=== PATIENT | female | born 1950 | race Two or more races ===

== ENCOUNTER 2024-10-13 11:18 | Inpatient (IN) | payer MEDICARE, MEDICAID ==
[~2024-10-13] VITALS: Ht 149.9 cm; Wt 93.0 kg
--- NOTE | 2024-10-13 12:53 | DVH ---
INDICATION: BACK PAIN TO RIGHT LOWER LEG TECHNIQUE: 4 views of the lumbar spine were obtained. COMPARISON: None FINDINGS: There are no acute fractures or subluxations. Osteopenia. Multilevel degenerative changes of the spine. Grade 2 anterolisthesis of L4 on L5. Grade 1 anterolisthesis of L5 on S1. IMPRESSION: No acute fracture or subluxation.
[2024-10-13] MEDS: HYDROcodone-ACET 5/325MG TAB PO ONE ×2 (13:07→17:52)
--- NOTE | 2024-10-13 13:14 | ED.PDOC ---
Musculoskeletal HPI Comments A 74 YEAR OLD FEMALE PRESENTS TO THE ED WITH COMPLAINT OF RIGHT LOWER LEG PAIN. PATIENT STATES SHE HAS BEEN EXPERIENCING RIGHT LOWER LEG PAIN THAT RADIATES UP HER RIGHT LEG TO HER RIGHT BUTTOCK FOR THE PAST 5 DAYS. PATIENT IS REQUESTING AN ULTRASOUND TO RULE OUT A BLOOD CLOT IN HER RIGHT LOWER EXTREMITY. WALKING AND STANDING INCREASES RIGHT LOWER LEG PAIN. PATIENT DENIES FEVER, CHILLS, SHORTNESS OF BREATH, CHEST PAIN, ABDOMINAL PAIN, NAUSEA, VOMITING, HEADACHE, OR OTHER COMPLAINTS. NO OTHER SYMPTOMS OR MODIFYING FACTORS AT THIS TIME. PATIENT IS ALERT, ORIENTED X 4, AND HAS STEADY GAIT. Chief Complaint: Lower Extremity Time Seen by MD: 11:53 Primary Care Provider: NONE Reviewed Notes: Nurses Notes, Medications, Allergies Allergies: Coded Allergies: Acetaminophen (Verified Allergy, Intermediate, 07/16/11) Codeine (Verified Allergy, Intermediate, 07/16/11) Penicillins (Verified Allergy, 07/16/11) Information Source: Patient Mode of Arrival: Ambulatory Location: Right Extremity Location: Leg Timing: Days Prehospital treatment: None Severity: Moderate Able to Move Extremity: Yes Bear Weight: Fully Pain: Moderate Mechanism: No Trauma, Spontaneous Circumstances: Spontaneous Onset of Symptoms: Spontaneous Symptoms: Pain DVT Risk Factors: NONE Last Tetanus: Unknown Associated signs and symptoms: Leg pain Past Medical History PAST MEDICAL HISTORY: Arthritis, HTN Surgical History: Denies all surgeries PHARMACY ORDER ENTRY TECHNICIAN History: No Pertinent PHARMACY ORDER ENTRY TECHNICIAN History Family History Family History: Reviewed,noncontributory to illness Social History Smoker: Non-Smoker Alcohol: Denies ETOH Use Drugs: Denies Drug Use Lives In: Home Constitutional: reports: others (ANXIOUS ); denies: chills, diaphoresis, fatigue, fever, malaise, sweats, weakness EENTM: denies: blurred vision, double vision, ear bleeding, ear discharge, ear drainage, ear pain, ear ringing, eye pain, eye redness, hearing loss, mouth pain, mouth swelling, nasal discharge, nose bleeding, nose congestion, nose pain, photophobia, tearing, throat pain, throat swelling, voice changes, others Respiratory: denies: cough, hemoptysis, orthopnea, SOB at rest, shortness of breath, SOB with excertion, stridor, wheezing, others Cardiovascular: denies: chest pain, dizzy spells, diaphoresis, Dyspnea on exertion, edema, irregular heart beat, left arm pain, lightheadedness, palpitations, PND, syncope, others Gastrointestinal: denies: abdomen distended, abdominal pain, blood streaked bowels, constipated, diarrhea, dysphagia, difficulty swallowing, hematemesis, melena, nausea, poor appetite, poor fluid intake, rectal bleeding, rectal pain, vomiting, others Genitourinary: denies: abnormal vagina bleeding, burning, dyspareunia, dysuria, flank pain, frequency, hematuria, incontinence, pain, , vagina discharge, urgency, others Neurological: denies: dizziness, fainting, headache, left sided numbness, left sided weakness, numbness, paresthesia, pre-existing deficit, right sided numbness, right sided weakness, seizure, speech problems, tingling, tremors, weakness, others Musculoskeletal: reports: muscle pain, others (RIGHT LOWER LEG PAIN THAT RADIATES TO RIGHT BUTTOCK); denies: back pain, gout, joint pain, joint swelling, muscle stiffness, neck pain Integumetry: denies: bruises, change in color, change in hair/nails, dryness, laceration, lesions, lumps, rash, wounds, others Allergic/Immunocompromised: denies: Difficulty Healing, Frequent Infections, Hives, Itching, others Hematologic/Lymphatic: denies: anemia, blood clots, easy bleeding, easy bruising, swollen glands, others Endocrine: denies: excessive hunger, excessive sweating, excessive thirst, excessive urination, flushing, intolerance to cold, intolerance to heat, unexplained weight gain, unexplained weight loss, others Psychiatric: denies: anxiety, bipolar disorder, depression, hopeless, panic disorder, schizophrenia, sleepless, suicidal, others All Other Systems: Reviewed and Negative Physical Exam General Appearance: Mild Distress, Normal, Other (ANXIOUS ) HEENT: Normal ENT Inspection, PERRL/EOMI, Pharynx Normal, TMs Normal Neck: Full Range of Motion, Non-Tender, Normal, Normal Inspection Respiratory: Chest Non-Tender, Lungs Clear, No Accessory Muscle Use, No Respiratory Distress, Normal Breath Sounds Cardiovascular: No Edema, No JVD, No Murmur, No Gallop, Normal Peripheral Pulses, Regular Rate/Rhythm Breast Exam: Deferred Gastrointestinal: No Organomegaly, Non Tender, No Pulsatile Mass, Normal Bowel Sounds, Soft Genitalia: Deferred Pelvic: Deferred Rectal: Deferred Extremities: Decreased range of motion (SLIGHTLY. ), No calf tenderness, Normal capillary refill, No pedal edema, Tender (WITH MILD SWELLING ON RIGHT LOWER LEG, NO ERYTHEMA AND SKIN RASH, MULTIPLE SMALL VARICOSE VEINS ON BILATERAL LOWER EXTREMITIES NOTED.) Musculoskeletal : Apperance: Normal Neurologic: Alert, technology development intern II-XII nml as Tested, No Motor Deficits, Normal Affect, Normal Mood, No Sensory Deficits Cerebellar Function: Normal Reflexes: Normal Skin: Dry, Normal Color, Warm Peripheral Pulses: 2+ carotid (R), 2+ carotid (L), 2+ dorsalis pedis (R), 2+ dorsalis pedis (L) Lymphatic: No Adenopathy Was a procedure done? Was a procedure done?: No Differential Diagnosis EXT Differential Diagnosis: Cellulitis, Deep Vein Thrombosis, Sprain, DJD, Strain, Arthritis X-Ray, Labs, Meds, VS Vital Signs Date Time Temp Pulse Resp B/P (MAP) Pulse Ox O2 Delivery O2 Flow Rate FiO2 10/13/24 12:27 97.5 75 18 139/80 (99) 97 97.5 10/13/24 11:52 97.5 75 18 139/80 (99) 97 Lab Test 10/13/24 13:30 Range/Units White Blood Count 4.3 L 4.4-10.8 10^3/uL Red Blood Count 4.70 4.0-5.20 10^6/uL Hemoglobin 13.4 12.2-16.2 g/dL Hematocrit 39.9 36.0-46.0 % Mean Corpuscular Volume 85.0 80.0-100.0 fL Mean Corpuscular Hemoglobin 28.6 28.0-32.0 pg Mean Corpuscular Hemoglobin Concent 33.6 32.0-36.0 g/dL Red Cell Distribution Width 14.5 H 11.8-14.3 % Platelet Count 215 140-450 10^3/uL Mean Platelet Volume 8.1 6.9-10.8 fL Neutrophils (%) (Auto) 52.1 37.0-80.0 % Lymphocytes (%) (Auto) 31.6 10.0-50.0 % Monocytes (%) (Auto) 15.3 H 0.0-12.0 % Eosinophils (%) (Auto) 0.6 0.0-7.0 % Basophils (%) (Auto) 0.4 0.0-2.0 % Neutrophils # (Auto) 2.2 1.6-8.6 10 ^3/uL Lymphocytes # (Auto) 1.3 0.4-5.4 10 ^3/uL Monocytes # (Auto) 0.7 0-1.3 10 ^3/uL Eosinophils # (Auto) 0 0-0.8 10 ^3/uL Basophils # (Auto) 0 0-0.2 10 ^3/uL Nucleated Red Blood Cells 0.1 % Prothrombin Time 10.6 9.3-11.8 sec Prothrombin Time INR 1.00 0.9-1.15 Sodium Level 137 136-145 mmol/L Potassium Level 3.6 3.5-5.1 mmol/L Chloride Level 102 98-107 mmol/L Carbon Dioxide Level 26 20-31 mmol/L Anion Gap 9 5-15 Blood Urea Nitrogen 14 9-23 mg/dL Creatinine 0.73 0.550-1.02 mg/dL Glomerular Filtration Rate Calc 86 >90 mL/min BUN/Creatinine Ratio 19.2 10.0-20.0 Serum Glucose 113 H 74-106 mg/dL Calcium Level 9.2 8.7-10.4 mg/dL Current Medications Medications (Trade) Dose Ordered Sig/Nimesh Route Start Time Stop Time Status Last Admin Acetaminophen/ Hydrocodone Bitart ([place] 5/325MG Tab) 1 tab ONCE ONCE PO 10/13/24 13:15 10/13/24 13:16 DC 10/13/24 13:07 Enoxaparin Sodium (Lovenox) 90 mg ONCE ONCE SC 10/13/24 13:30 10/13/24 13:31 DC 10/13/24 13:48 Sodium Chloride 1,000 ml @ 125 mls/hr Q8H ONCE IV 10/13/24 13:30 10/13/24 21:29 10/13/24 13:47 US RT LOWER DVT US 10/13/2024 01:07 PM Clinical History: RIGHT LOWER LEG PAIN Comparison: None Technique: Duplex Doppler evaluation of the deep venous system of the right lower extremity from the common femoral vein to the popliteal vein including color Doppler and spectral/pulsed waveform analysis was performed. Findings: The common femoral vein demonstrates appropriate compressibility and waveform variability. There is compressibility/patency of the great saphenous vein at the proximal thigh. The proximal and mid segments of the femoral vein are not compressible. No flow is seen in the proximal segment. Partial flow noted in mid segment. The deep femoral vein demonstrates appropriate compressibility and waveform variability. The popliteal vein demonstrates appropriate compressibility and waveform variability. There is color flow in the tibioperoneal trunk and posterior tibial vein. Impression: 1. Deep venous thrombosis involving the proximal and mid segments of the femoral vein, occlusive in the proximal part of the vein. ATED BY: COURTNEY FREGOSO MD DICTATED DATE/TIME: 10/13/24 134 SIGNED BY: COURTNEY FREGOSO MD SIGNED DATE/TIME: 10/13/24 134 CC: INDICATION: BACK PAIN TO RIGHT LOWER LEG TECHNIQUE: 4 views of the lumbar spine were obtained. COMPARISON: None FINDINGS: There are no acute fractures or subluxations. Osteopenia. Multilevel degenerative changes of the spine. Grade 2 anterolisthesis of L4 on L5. Grade 1 anterolisthesis of L5 on S1. IMPRESSION: No acute fracture or subluxation. ATED BY: GORDON HOWARD MD DICTATED DATE/TIME: 10/13/24 124 SIGNED BY: GORDON HOWARD MD SIGNED DATE/TIME: 10/13/24 124 CC: X-Ray, Labs, Meds, VS Comment EXTERNAL MEDICAL RECORDS REVIEWED: [NONE] INDEPENDENT HISTORIANS: [NONE] SOCIAL DETERMINANTS OF HEALTH: [NONE] LABS ORDERED: NONE REVIEWED AND INTERPRETED RESULTS: NONE IMAGING ORDERED: CV VENOUS DOPPLER LOW EXT RT, XR L-SPINE TREATMENTS ORDERED: NORCO 5/325 MG P.O, LOVENOX 90 MG SC, 0.9 NS 125ML/HOUR PROCEDURES PERFORMED: NONE CRITICAL CARE TIME: NONE I HAVE DISCUSSED THE PATIENT WITH THE ATTENDING PHYSICIAN DR. MILLER AND HE AGREES WITH THE PATIENT'S PLAN OF CARE AND ADMISSION. UPON MY PHYSICAL EXAMINATION, THE PATIENT HAD VARICOSE VEINS NOTED TO HER BILATERAL LOWER EXTREMITIES, BUT THE PATIENT HAD MINIMAL SWELLING NOTED TO HER RIGHT LOWER EXTREMITY, NO REDNESS OR OPEN WOUNDS WERE NOTED. MY DIFFERENTIAL DIAGNOSIS INCLUDES, DVT, SUPERFICIAL THROMBOSIS, MUSCLE STRAIN, DDD OF L-SPINE, LUMBAR RADICULOPATHY, VARICOSE VEINS. AN ULTRASOUND OF THE PATIENT'S RIGHT LOWER EXTREMITY WAS DONE WHICH REVEALED A DVT, BUT NO OTHER FINDINGS. AN X-RAY OF THE PATIENT'S LUMBAR SPINE WAS DONE WHICH REVEALED DEGENERATIVE DISC DISEASE, BUT NO OTHER ACUTE FINDINGS. PATIENT WAS MEDICATED HERE IN THE ED WITH NORCO 5/325 MG P.O., AND LOVENOX 90 MG SUBCUTANEOUSLY. DUE TO THE PATIENT HAVING A DVT IN HER RIGHT LOWER EXTREMITY, I HAVE DETERMINED THE PATIENT NEEDS TO BE ADMITTED FOR FURTHER TREATMENT AND EVALUATION. ON-CALL ADMITTING PHYSICIAN WILL BE CONTACTED FOR ADMISSION OF THIS PATIENT. Images Reviewed?: Images reviewed and evaluated by me Time of 1ST Reevaluation: 14:00 Reevaluation 1ST: Unchanged Patient Education/Counseling: Diagnosis, Treatment Family Education/Counseling: Diagnosis, Treatment Departure 1 Departure Time of Disposition: 14:00 Impression: Primary Impression: Deep vein thrombosis (DVT) of right lower extremity Qualified Codes: I82.411 - Acute embolism and thrombosis of right femoral vein Additional Impression: Degenerative disc disease, lumbar Qualified Codes: M51.361 - Other intervertebral disc degeneration, lumbar region with lower extremity pain only Disposition: 09 ADMITTED INPATIENT Admit to: Tele Condition: Serious Critical Care Note Critical Care Time?: No Stability Stability form required: Yes Unstable for transfer: Requires medication, ED Physician Assesment, Possible rapid decline Heart Score Heart Score: Heart Score Response (Comments) Value History N/A 0 EKG N/A 0 Age N/A 0 Risk Factors N/A 0 Troponin N/A 0 Total 0 I personally scribed for LISSETTE GREENE ([email or web address]) on 10/13/24 at 13:14. Electronically submitted by Samuel Carbajal ([employer] I personally scribed for LISSETTE GREENE ([email or web address]) on 10/13/24 at 13:50. Electronically submitted by Samuel Carbajal ([email or web address]). LISSETTE GREENE Oct 13, 2024 13:14
--- NOTE | 2024-10-13 13:43 | DVH ---
US RT LOWER DVT US 10/13/2024 01:07 PM Clinical History: RIGHT LOWER LEG PAIN Comparison: None Technique: Duplex Doppler evaluation of the deep venous system of the right lower extremity from the common femo ral vein to the popliteal vein including color Doppler and spectral/pulsed waveform analysis was perf ormed. Findings: The common femoral vein demonstrates appropriate compressibility and waveform variability. There is compressibility/patency of the great saphenous vein at the proximal thigh. The proximal and mid segments of the femoral vein are not compressible. No flow is seen in the proxim al segment. Partial flow noted in mid segment. The deep femoral vein demonstrates appropriate compressibility and waveform variability. The popliteal vein demonstrates appropriate compressibility and waveform variability. There is color flow in the tibioperoneal trunk and posterior tibial vein. Impression: 1. Deep venous thrombosis involving the proximal and mid segments of the femoral vein, occlusive in t he proximal part of the vein.
[2024-10-13] MEDS: SODIUM CHLORIDE 0.9% 1,000 ML IV ONE (13:47)
[2024-10-13] MEDS: ENOXAPARIN SOD 100 MG/1 ML SYRINGE SC ONE (13:48)
[2024-10-13 13:59] LABS: Basophils # (auto) 0 10 ^3/uL (0-0.2); Basophils % (auto) 0.4 % (0.0-2.0); Eosinophils # (auto) 0 10 ^3/uL (0-0.8); Eosinophils % (auto) 0.6 % (0.0-7.0); Hematocrit 39.9 % (36.0-46.0); Hemoglobin 13.4 g/dL (12.2-16.2); Lymphocytes # (auto) 1.3 10 ^3/uL (0.4-5.4); Lymphocytes % (auto) 31.6 % (10.0-50.0); Mean Corpuscular Hemoglobin 28.6 pg (28.0-32.0); Mean Corpuscular Hgb Conc. 33.6 g/dL (32.0-36.0); Monocytes # (auto) 0.7 10 ^3/uL (0-1.3); Monocytes % (auto) 15.3 % (0.0-12.0); Neutrophils # (auto) 2.2 10 ^3/uL (1.6-8.6); Neutrophils % (auto) 52.1 % (37.0-80.0); Nucleated Red Blood Cells % 0.1 %; Platelet Count (auto) 215 10^3/uL (140-450); Red Cell Distribution Width 14.5 % (11.8-14.3); White Blood Cell 4.3 10^3/uL (4.4-10.8)
[2024-10-13 14:03] LABS: Anion Gap 9 (5-15); Carbon Dioxide 26 mmol/L (20-31); Chloride 102 mmol/L (98-107); Potassium 3.6 mmol/L (3.5-5.1); Sodium 137 mmol/L (136-145)
[2024-10-13 14:05] LABS: Calcium 9.2 mg/dL (8.7-10.4)
[2024-10-13 14:10] LABS: BUN/Creatinine Ratio 19.2 (10.0-20.0); Blood Urea Nitrogen 14 mg/dL (9-23)
[2024-10-13 14:17] LABS: Glucose 113 mg/dL (74-106)
[2024-10-13 14:30] LABS: Prothrombin Time 10.6 sec (9.3-11.8)
[2024-10-13] MEDS: IOHEXOL 350 MG/ML 100ML IJ ONE (22:53)
--- NOTE | 2024-10-13 23:00 | DVHHPRES ---
History of Present Illness Resident Creating Document: DANUTA MUÑOZ RESIDENT Reason for Visit: Right lower leg pain History of Present Illness This is a 74-year-old female who comes to the ED with chief complain of right lower leg pain. She has a past medical history relevant for hypertension, arthritis. Denies any smoking, alcohol or drug abuse. Patient stated that for the last three weeks he has been experiencing worsening right lower leg pain, denies any recent trauma, she stated that it mainly on her side, does state having mild swollen on that side as well, denies any rash, redness, she stated that she has sinus pain on walking. Denies any chest pain, shortness of breath, fevers, chills, abdominal pain, nausea, vomiting, dizziness, lightheadedness. She only states having a mild productive cough and states having recent sick contacts at home. Patient also relates having had at least three surgical procedures on on both of her legs for her varicose veins, by a vascular surgeon, last procedure was around six months ago. In the ED patient had a lower extremity Doppler which demonstrated a DVT, she was provided therapeutic Lovenox and a [place] for pain. On my assessment, patient was in moderate distress due to pain on her right leg, she was experiencing some nausea and dizziness due to the same, patient's blood pressure was high at 162/75. Patient was admitted for further admission admission and management. Cardiovascular: HTN Smoke: No ALCOHOL: rare Drugs: None Lives: with Family Review of Systems Constitutional: No: Fever, Chills, Sweats, Weakness, Malaise, Other Eyes: No: Pain, Vision change, Conjunctivae inflammation, Eyelid inflammation, Other, Redness ENT: No: Ear pain, Ear discharge, Nose pain, Nose discharge, Nose congestion, Mouth pain, Mouth swelling, Throat pain, Throat swelling, Other Respiratory: No: Cough, Dry, Shortness of breath, SOB with excertion, Wheezing, Hemoptysis, Pleuritic Pain, Sputum, Wheezing, Other Cardiovascular: Edema; No: Chest Pain, Palpitations, Orthopnea, Paroxysmal Noc. Dyspnea, Lt Headedness, Other Gastrointestinal: No: Nausea, Vomiting, Abdominal Pain, Diarrhea, Constipation, Melena, Hematochezia, Other Genitourinary: No Dysuria, No Frequency, No Incontinence, No Hematuria, No Retention, No Other Musculoskeletal: leg pain; No: other, neck pain, shoulder pain, arm pain, back pain, hand pain, foot pain Skin: No: Rash, Lesions, Jaundice, Bruising, Other Neurological: No: Weakness, Numbness, Incoordination, Change in speech, Confusion, Seizures, Other Allergies: Coded Allergies: Acetaminophen (Verified Allergy, Intermediate, 07/16/11) Codeine (Verified Allergy, Intermediate, 07/16/11) Penicillins (Verified Allergy, Unknown, 10/13/24) Medications Current Medications Medications Dose Ordered Sig/Nimesh Route Start Time Stop Time Status Last Admin Dose Admin Morphine Sulfate 1 mg Q4HP PRN IV 10/13/24 22:30 Tramadol HCl 50 mg Q4HP PRN PO 10/13/24 22:30 Ondansetron HCl 4 mg Q4HPRN PRN IV 10/13/24 22:30 Enoxaparin Sodium 90 mg Q12H SC 10/14/24 02:00 Lisinopril 20 mg DAILY PO 10/14/24 10:00 Exam Vital Signs Vital Signs Date Time Temp Pulse Resp B/P (MAP) Pulse Ox O2 Delivery O2 Flow Rate FiO2 10/13/24 20:51 58 18 95 Room Air 10/13/24 20:51 97.7 154/67 (96) 97.7 General Appearance: Alert, Oriented X3, Cooperative, moderate distress HEENT: Atraumatic, PERRLA, EOMI, Mucous membr. moist/pink Respiratory: Clear to auscultation, Normal air movement Cardiovascular: Regular rate, Normal S1, Normal S2, No murmurs Abdominal: Normal bowel sounds, Soft, No tenderness, No hepatospenomegaly Extremities: No clubbing, No cyanosis, Other (Decreased pedal pulses bilaterally, hyperpigmented macule changes in albert, right leg has mild nonpitting edema, it is [id number] tender to palpation, no crepitus, sensory is normal, no paralysis, capillary refill less than 2 seconds, no cyanosis) Neuro: Normal speech, Strength at 5/5 X4 ext, Normal tone, Sensation intact, Cranial nerves 3-12 NL Psych/Mental Status: Mental status NL, Mood NL Labs/Xrays Labs Test 10/13/24 22:51 10/13/24 13:30 Range/Units White Blood Count 4.3 L 4.4-10.8 10^3/uL Red Blood Count 4.70 4.0-5.20 10^6/uL Hemoglobin 13.4 12.2-16.2 g/dL Hematocrit 39.9 36.0-46.0 % Mean Corpuscular Volume 85.0 80.0-100.0 fL Mean Corpuscular Hemoglobin 28.6 28.0-32.0 pg Mean Corpuscular Hemoglobin Concent 33.6 32.0-36.0 g/dL Red Cell Distribution Width 14.5 H 11.8-14.3 % Platelet Count 215 140-450 10^3/uL Mean Platelet Volume 8.1 6.9-10.8 fL Neutrophils (%) (Auto) 52.1 37.0-80.0 % Lymphocytes (%) (Auto) 31.6 10.0-50.0 % Monocytes (%) (Auto) 15.3 H 0.0-12.0 % Eosinophils (%) (Auto) 0.6 0.0-7.0 % Basophils (%) (Auto) 0.4 0.0-2.0 % Neutrophils # (Auto) 2.2 1.6-8.6 10 ^3/uL Lymphocytes # (Auto) 1.3 0.4-5.4 10 ^3/uL Monocytes # (Auto) 0.7 0-1.3 10 ^3/uL Eosinophils # (Auto) 0 0-0.8 10 ^3/uL Basophils # (Auto) 0 0-0.2 10 ^3/uL Nucleated Red Blood Cells 0.1 % Prothrombin Time 10.6 9.3-11.8 sec Prothrombin Time INR 1.00 0.9-1.15 Sodium Level 137 136-145 mmol/L Potassium Level 3.6 3.5-5.1 mmol/L Chloride Level 102 98-107 mmol/L Carbon Dioxide Level 26 20-31 mmol/L Anion Gap 9 5-15 Blood Urea Nitrogen 14 9-23 mg/dL Creatinine 0.73 0.550-1.02 mg/dL Glomerular Filtration Rate Calc 86 >90 mL/min BUN/Creatinine Ratio 19.2 10.0-20.0 Serum Glucose 113 H 74-106 mg/dL Calcium Level 9.2 8.7-10.4 mg/dL Assessment/Plan Assessment/Plan #Right lower leg pain, due to DVT of right femoral vein, likely provoked Therapeutic Lovenox 1 milligram/kilogram b.i.d. Order CT angio of the chest Cardiac diet COVID and flu test were negative Pain management p.r.n. Zofran 4 mg IV p.r.n. Ordered CPK Order echocardiogram Troponins and BNP were unremarkable #Hypertension, uncontrolled Lisinopril 20 mg p.o. q.d. Counseled on lifestyle modifications #Prediabetes Counseled on lifestyle modifications #Obesity, morbid Counseled on lifestyle modifications Goals of care were discussed for 30 minutes. Full code Case was discussed with Dr. Haque Plan discussed with: Patient My Orders Orders - DANUTA MUÑOZ RESIDENT Procedure Category Date Status Time Admit ADMIT 10/13/24 Transmitted 22:08 Notify Of Changes JERRELL 10/13/24 In Process From Base 22:08 Electrocardigram EKG 10/13/24 Logged 22:08 Morphine Sulfate PHA 10/13/24 In Process Injection 22:30 Tramadol Hcl (Ultram) PHA 10/13/24 In Process 22:30 Ondansetron Hcl PHA 10/13/24 In Process (Zofran) 22:30 Enoxaparin Sodium PHA 10/14/24 In Process (Lovenox) 02:00 B-Type Natriuretic LAB 10/13/24 In Process Peptide 22:24 Troponin-I Hs LAB 10/13/24 In Process 22:24 Echo 2d Mode Cardiac US 10/13/24 Logged DOP 22:24 Magnesium LAB 10/13/24 In Process 22:24 Covid19 Antigen Ekaterina LAB 10/13/24 Logged Rapid Influenza A&B LAB 10/13/24 Logged 22:24 Urinalysis LAB 10/13/24 Logged 22:24 Drug Screen LAB 10/13/24 Logged 22:24 Lipid Panel LAB 10/13/24 In Process 22:24 Hemoglobin A1c LAB 10/13/24 In Process 22:24 Chest Xray 1 View XY 10/13/24 Logged 22:24 Lisinopril Tablet PHA 10/14/24 In Process (Zestril Tablet) 10:00 Bilat Low Ext Art US 10/13/24 Logged Duplex 22:[address] 10/13/24 Logged Contrast 22:24 Complete Blood Count LAB 10/14/24 Verified 04:00 Basic Metabolic Panel LAB 10/14/24 Verified 04:00 Date of Service: Oct 14, 2024 Billing Provider: CORDELIA HAQUE MD Common Visit Codes: [id number] INP/OBS CARE (HIGH) DANUTA MUÑOZ RESIDENT Oct 13, 2024 23:00 CORDELIA HAQUE MD Oct 14, 2024 22:39
--- NOTE | 2024-10-13 23:39 | DVH ---
CHEST RADIOGRAPH Indication: sob Technique: Single frontal view of the chest was obtained COMPARISON: None FINDINGS: Lines and Tubes: None Lungs: Clear. Pleura: No effusion. No pneumothorax. Cardiomediastinal contours: Unremarkable Bones: Unremarkable IMPRESSION: No acute disease.
[2024-10-14] VITALS (9 sets, daily range): BP systolic 127–216; BP diastolic 66–85; PULSE 61–84; RESP 16–20; TEMP 36.7; O2SAT 95–98
[2024-10-14 00:26] LABS: COVID19 ANTIGEN SOFIA FIA NEGATIVE (NEGATIVE); Rapid Influenza A Negative (Negative); Rapid Influenza B Negative (Negative)
--- NOTE | 2024-10-14 00:26 | DVH ---
CLINICAL HISTORY: right leg dvt, sob, r/o pe TECHNIQUE: CT angiogram of the chest was performed with intravenous contrast. 3D MIP reconstructed i mages were created and archived on the PACS system. This exam was performed according to our [facility] dose optimization program. Up-to-date CT equipment and radiation dose reduction techniques are u tilized as appropriate. COMPARISON: None FINDINGS: Lower Neck: Unremarkable Axilla, Mediastinum and Alee: Small hiatal hernia. No axillary lymphadenopathy. Prominent mediastinal and bilateral hilar lymph nodes. Heart and Great Vessels: Normal-sized heart. At least mild coronary artery calcifications. Thoracic aorta is patent and normal caliber with mild mixed atherosclerotic plaque. No central, segmental, or subsegmental pulmonary artery filling defect is seen to suggest pulmonary embolism. Airway, Lungs and Pleura: Trachea and central airways are patent. There is bronchial wall thickening No airspace consolidation, pleural effusion, or pneumothorax. Chest Wall and Osseous Structures: Moderate left glenohumeral arthrosis. No destructive osseous lesio n. Mild thoracic spondylosis. Upper abdomen: There is cholelithiasis. IMPRESSION: 1. No evidence of pulmonary embolism. 2. Bilateral bronchial wall thickening which could be acute or chronic bronchitis. 3. Mildly prominent bilateral hilar and mediastinal lymph nodes, nonspecific on initial exam though m ay be reactive. 4. Mild coronary artery calcifications. 5. Cholelithiasis. 6. Small hiatal hernia.
--- NOTE | 2024-10-14 00:46 | DVH ---
BILATERAL LOWER EXTREMITY ARTERIAL DOPPLER ULTRASOUND CLINICAL HISTORY: DIMINISHED PULSES TECHNIQUE: Multiple grayscale, color Doppler and spectral Doppler ultrasound images were obtained of bilateral legs for evaluation of the peripheral arteries. COMPARISON: None FINDINGS: The common femoral (PIPE COVERER AND INSULATOR), upper deep femoral, superficial femoral (SFA), popliteal, posterior tibial (WEB CONTENT MANAGER), and dorsalis pedis arteries were evaluated on this exam. Grayscale images demonstrate no significant atherosclerotic plaque. Right: Color doppler images demonstrate no visible stenosis or occlusion. Spectral analysis demonstrates h igh-resistive blood flow. Systolic acceleration is normal. No significant change in velocity to sugg est high-grade stenosis. Velocities (in cm/s ) PIPE COVERER AND INSULATOR: 93; deep femoral: 38; superficial femoral artery proximal 109, mid 90, distal 69 ; popliteal 69; posterior tibial 53; dorsalis pedis 53 Left: Color doppler images demonstrate no visible stenosis or occlusion. Spectral analysis demonstrates h igh-resistive blood flow. Systolic acceleration is normal. No significant change in velocity to sugg est high-grade stenosis. Velocities (in cm/s ) PIPE COVERER AND INSULATOR: 141; deep femoral: 88; superficial femoral artery proximal 89, mid 84, distal 67 ; popliteal 76; posterior tibial 37; dorsalis pedis 41 IMPRESSION: No evidence of focal stenosis or significant arterial insufficiency in the bilateral lower extremitie s.
[2024-10-14] MEDS: hydrALAZINE HCL 20 MG/ML VL IV PRN (01:14)
[2024-10-14] MEDS: ENOXAPARIN SOD 100 MG/1 ML SYRINGE SC SCH (02:19)
[2024-10-14] MEDS: traMADol HCL 50 MG TAB PO PRN (02:38)
[2024-10-14] MEDS: MORPHINE SULFATE INJ 2 MG/ml SYRG IV PRN (06:16)
[2024-10-14 08:27] LABS: Chloride 103 mmol/L (98-107)
[2024-10-14 08:28] LABS: Anion Gap 7 (5-15); Carbon Dioxide 25 mmol/L (20-31); Potassium 3.4 mmol/L (3.5-5.1); Sodium 135 mmol/L (136-145)
[2024-10-14 08:33] LABS: BUN/Creatinine Ratio 13.3 (10.0-20.0); Glucose 94 mg/dL (74-106)
[2024-10-14 08:35] LABS: Creatine Kinase IFCC 83 U/L (34-145)
[2024-10-14 08:37] LABS: Basophils # (auto) 0.1 10 ^3/uL (0-0.2); Basophils % (auto) 1.5 % (0.0-2.0); Eosinophils # (auto) 0.1 10 ^3/uL (0-0.8); Eosinophils % (auto) 1.1 % (0.0-7.0); Hematocrit 38.9 % (36.0-46.0); Hemoglobin 13.1 g/dL (12.2-16.2); Lymphocytes # (auto) 2.3 10 ^3/uL (0.4-5.4); Lymphocytes % (auto) 46.9 % (10.0-50.0); Mean Corpuscular Hemoglobin 28.7 pg (28.0-32.0); Mean Corpuscular Hgb Conc. 33.7 g/dL (32.0-36.0); Mean Corpuscular Volume 85.2 fL (80.0-100.0); Monocytes # (auto) 0.7 10 ^3/uL (0-1.3); Monocytes % (auto) 14.3 % (0.0-12.0); Neutrophils # (auto) 1.8 10 ^3/uL (1.6-8.6); Neutrophils % (auto) 36.2 % (37.0-80.0); Nucleated Red Blood Cells % 0.4 %; Platelet Count (auto) 206 10^3/uL (140-450); Red Blood Cells 4.56 10^6/uL (4.0-5.20); Red Cell Distribution Width 14.5 % (11.8-14.3); White Blood Cell 4.8 10^3/uL (4.4-10.8)
[2024-10-14 09:03] LABS: Blood Urea Nitrogen 8 mg/dL (9-23)
[2024-10-14] MEDS: LISINOPRIL 20 MG TAB PO SCH (09:25)
[2024-10-14] MEDS: ONDANSETRON HCL 4 MG/2 ML VIAL IV PRN (09:56)
--- NOTE | 2024-10-14 16:44 | DVHDSRES ---
Discharge Summary Date of Admission Resident Creating Document: DANUTA MUÑOZ RESIDENT Oct 13, 2024 at 22:08 Date of Discharge: Oct 14, 2024 Admitting Diagnosis right legs swelling DVT right leg Labs/Diagnostic Data: PATIENT: MONCHO KNIGHTCT: [id number] UNIT: [id number] : 1950 LOC: ER ROOM / BED: / AGE / SEX: 74 / F ADM STATUS: REG ER SERVICE 1231 ORDERING PHYSICIAN: LISSETTE GREENE PROCEDURE(s): RLDVT - RT Lower DVT REASON: RIGHT LOWER LEG PAIN ORDER NUMBER(s): [id number], ACCESSION NUMBER(s): [id number] US RT LOWER DVT US 10/13/2024 01:07 PM Clinical History: RIGHT LOWER LEG PAIN Comparison: None Technique: Duplex Doppler evaluation of the deep venous system of the right lower extremity from the common femoral vein to the popliteal vein including color Doppler and spectral/pulsed waveform analysis was performed. Findings: The common femoral vein demonstrates appropriate compressibility and waveform variability. There is compressibility/patency of the great saphenous vein at the proximal thigh. The proximal and mid segments of the femoral vein are not compressible. No flow is seen in the proximal segment. Partial flow noted in mid segment. The deep femoral vein demonstrates appropriate compressibility and waveform variability. The popliteal vein demonstrates appropriate compressibility and waveform variability. There is color flow in the tibioperoneal trunk and posterior tibial vein. Impression: 1. Deep venous thrombosis involving the proximal and mid segments of the femoral vein, occlusive in the proximal part of the vein. ENT: MONCHO KNIGHTCT: [id number] UNIT: [id number] : 1950 LOC: ER ROOM / BED: / AGE / SEX: 74 / F ADM STATUS: REG ER SERVICE 1231 ORDERING PHYSICIAN: LISSETTE GREENE PROCEDURE(s): LUMB2 - LUMBAR SPINE 3 VIEW REASON: BACK PAIN TO RIGHT LOWER LEG ORDER NUMBER(s): [id number], ACCESSION NUMBER(s): [id number] INDICATION: BACK PAIN TO RIGHT LOWER LEG TECHNIQUE: 4 views of the lumbar spine were obtained. COMPARISON: None FINDINGS: There are no acute fractures or subluxations. Osteopenia. Multilevel degenerative changes of the spine. Grade 2 anterolisthesis of L4 on L5. Grade 1 anterolisthesis of L5 on S1. IMPRESSION: No acute fracture or subluxation. ENT: MONCHO KNIGHTCT: [id number] UNIT: [id number] : 1950 LOC: OVERFLOW ROOM / BED: [address] [place] [address] / A AGE / SEX: 74 / F ADM STATUS: ADM IN SERVICE 23 ORDERING PHYSICIAN: DANUTA MUÑOZ PROCEDURE(s): CXR1 - CHEST XRAY 1 VIEW REASON: sob ORDER NUMBER(s): [id number], ACCESSION NUMBER(s): [id number] CHEST RADIOGRAPH Indication: sob Technique: Single frontal view of the chest was obtained COMPARISON: None FINDINGS: Lines and Tubes: None Lungs: Clear. Pleura: No effusion. No pneumothorax. Cardiomediastinal contours: Unremarkable Bones: Unremarkable IMPRESSION: No acute disease. ATED BY: LEX BLOOM MD DICTATED DATE/TIME: 10/13/24 1686 SIGNED BY: LEX BLOOM MD PATIENT: MONCHO KNIGHTCT: [id number] UNIT: [id number] : 1950 LOC: OVERFLOW ROOM / BED: [address] [place] [address] / A AGE / SEX: 74 / F ADM STATUS: ADM IN SERVICE 23 ORDERING PHYSICIAN: DANUTA MUÑOZ PROCEDURE(s): CTACH - CT ANGIO CHEST CONTRAST REASON: right leg dvt, sob, r/o pe ORDER NUMBER(s): [id number], ACCESSION NUMBER(s): [id number] CLINICAL HISTORY: right leg dvt, sob, r/o pe TECHNIQUE: CT angiogram of the chest was performed with intravenous contrast. 3D MIP reconstructed images were created and archived on the PACS system. This exam was performed according to our departmental dose optimization program. Up-to-date CT equipment and radiation dose reduction techniques are utilized as appropriate. COMPARISON: None FINDINGS: Lower Neck: Unremarkable Axilla, Mediastinum and Alee: Small hiatal hernia. No axillary lymphadenopathy. Prominent mediastinal and bilateral hilar lymph nodes. Heart and Great Vessels: Normal-sized heart. At least mild coronary artery calcifications. Thoracic aorta is patent and normal caliber with mild mixed atherosclerotic plaque. No central, segmental, or subsegmental pulmonary artery filling defect is seen to suggest pulmonary embolism. Airway, Lungs and Pleura: Trachea and central airways are patent. There is bronchial wall thickening No airspace consolidation, pleural effusion, or pneumothorax. Chest Wall and Osseous Structures: Moderate left glenohumeral arthrosis. No destructive osseous lesion. Mild thoracic spondylosis. Upper abdomen: There is cholelithiasis. IMPRESSION: 1. No evidence of pulmonary embolism. 2. Bilateral bronchial wall thickening which could be acute or chronic bronchitis. 3. Mildly prominent bilateral hilar and mediastinal lymph nodes, nonspecific on initial exam though may be reactive. 4. Mild coronary artery calcifications. 5. Cholelithiasis. 6. Small hiatal hernia. ATED BY: BRANDON HUFFMAN MD DICTATED DATE/TIME: 10/14/24 0024 PATIENT: MONCHO KNIGHTAACCT: [id number] UNIT: [id number] : 1950 LOC: OVERFLOW ROOM / BED: [address] [place] [address] / A AGE / SEX: 74 / F ADM STATUS: ADM IN SERVICE 23 ORDERING PHYSICIAN: DANUTA MUÑOZ RESIDENT PROCEDURE(s): BLEAD - BiLat Low Ext Art Duplex REASON: DIMINISHED PULSES ORDER NUMBER(s): [id number], ACCESSION NUMBER(s): [id number] BILATERAL LOWER EXTREMITY ARTERIAL DOPPLER ULTRASOUND CLINICAL HISTORY: DIMINISHED PULSES TECHNIQUE: Multiple grayscale, color Doppler and spectral Doppler ultrasound images were obtained of bilateral legs for evaluation of the peripheral arteries. COMPARISON: None FINDINGS: The common femoral (CUSTOMER ENGINEERING SPECIALIST), upper deep femoral, superficial femoral (SFA), popliteal, posterior tibial (DISTRICT MANAGER POSTAL SERVICE), and dorsalis pedis arteries were evaluated on this exam. Grayscale images demonstrate no significant atherosclerotic plaque. Right: Color doppler images demonstrate no visible stenosis or occlusion. Spectral analysis demonstrates high-resistive blood flow. Systolic acceleration is normal. No significant change in velocity to suggest high-grade stenosis. Velocities (in cm/s ) CUSTOMER ENGINEERING SPECIALIST: 93; deep femoral: 38; superficial femoral artery proximal 109, mid 90, distal 69 ; popliteal 69; posterior tibial 53; dorsalis pedis 53 Left: Color doppler images demonstrate no visible stenosis or occlusion. Spectral analysis demonstrates high-resistive blood flow. Systolic acceleration is normal. No significant change in velocity to suggest high-grade stenosis. Velocities (in cm/s ) CUSTOMER ENGINEERING SPECIALIST: 141; deep femoral: 88; superficial femoral artery proximal 89, mid 84, distal 67 ; popliteal 76; posterior tibial 37; dorsalis pedis 41 IMPRESSION: No evidence of focal stenosis or significant arterial insufficiency in the bilateral lower extremities. Laboratory Results Test 10/14/24 07:50 10/13/24 23:40 10/13/24 22:51 10/13/24 13:30 White Blood Count 4.8 10^3/uL (4.4-10.8) Red Blood Count 4.56 10^6/uL (4.0-5.20) Hemoglobin 13.1 g/dL (12.2-16.2) Hematocrit 38.9 % (36.0-46.0) Mean Corpuscular Volume 85.2 fL (80.0-100.0) Mean Corpuscular Hemoglobin 28.7 pg (28.0-32.0) Mean Corpuscular Hemoglobin Concent 33.7 g/dL (32.0-36.0) Red Cell Distribution Width 14.5 % (11.8-14.3) Platelet Count 206 10^3/uL (140-450) Mean Platelet Volume 8.3 fL (6.9-10.8) Neutrophils (%) (Auto) 36.2 % (37.0-80.0) Lymphocytes (%) (Auto) 46.9 % (10.0-50.0) Monocytes (%) (Auto) 14.3 % (0.0-12.0) Eosinophils (%) (Auto) 1.1 % (0.0-7.0) Basophils (%) (Auto) 1.5 % (0.0-2.0) Neutrophils # (Auto) 1.8 10 ^3/uL (1.6-8.6) Lymphocytes # (Auto) 2.3 10 ^3/uL (0.4-5.4) Monocytes # (Auto) 0.7 10 ^3/uL (0-1.3) Eosinophils # (Auto) 0.1 10 ^3/uL (0-0.8) Basophils # (Auto) 0.1 10 ^3/uL (0-0.2) Nucleated Red Blood Cells 0.4 % Sodium Level 135 mmol/L (136-145) Potassium Level 3.4 mmol/L (3.5-5.1) Chloride Level 103 mmol/L (98-107) Carbon Dioxide Level 25 mmol/L (20-31) Anion Gap 7 (5-15) Blood Urea Nitrogen 8 mg/dL (9-23) Creatinine 0.60 mg/dL (0.550-1.02) Glomerular Filtration Rate Calc 94 mL/min (>90) BUN/Creatinine Ratio 13.3 (10.0-20.0) Serum Glucose 94 mg/dL (74-106) Calcium Level 9.0 mg/dL (8.7-10.4) Creatine Kinase 83 U/L (34-145) Influenza Type A Antigen Negative (Negative) Influenza Type B Antigen Negative (Negative) SARS-CoV-2 Antigen (Rapid) Negative (NEGATIVE) Hemoglobin A1c 5.8 % A1C (<5.7) Magnesium Level 2.0 mg/dL (1.6-2.6) Troponin I High Sensitivity 5 ng/L (</=34) B-Type Natriuretic Peptide 19.15 pg/mL (0-100) Triglycerides Level 194 mg/dL (< 150) Cholesterol Level 143 mg/dL (< 200) LDL Cholesterol 79 mg/dL (< 100) HDL Cholesterol 35 mg/dL (40-59) Prothrombin Time 10.6 sec (9.3-11.8) Prothrombin Time INR 1.00 (0.9-1.15) Other Laboratory Tests 10/14/24 07:50 Brief Hx & Hospital Course: Brief History and Hospital course This 74-year-old female with a past medical history significant for hypertension and arthritis presented to the ED with a chief complain of right lower leg pain that has been going on for the past 2 weeks. Pain and discomfort started gradually until about 2 days ago where patient was unable to walk thus prompting the hospital visit. She denied trauma, infection, any rash or redness. she stated that she has pain on walking. She denied any history of thromobsis or platelet disorder. Denies any chest pain, shortness of breath, fevers, chills, abdominal pain, nausea, vomiting, dizziness, lightheadedness or cancers. She stated having a mild productive cough and stated having recent sick contacts at home. Patient also mentioned having had at least three surgical procedures on both of her legs for her varicose veins, by a vascular surgeon, last procedure was around six months ago. In the ED patient had a lower extremity Doppler which demonstrated a DVT, she was provided therapeutic Lovenox and a [place] for pain. At the time of my assessment, patient blood pressure was 1778/66. Patient admits to not taking her anti-hypertensive ( lisinopril) since coming to the Hospital. She was started on her home dose of Lisinopril 20mg and monitored closely. By late this afternoon, her bp showed 139/89 at 3pm and at 5pm her bp read 127/67. Without any other complaints, we decided to send patient home on Eliquis 10mg bid for 7 days after 5mg bid for 6 months. Examination General Appearance: Alert, Oriented X3, Cooperative, No acute distress HEENT: Atraumatic, PERRLA, EOMI, Mucous membr. moist/pink Respiratory: Clear to auscultation, Normal air movement Cardiovascular: Regular rate, Normal S1, Normal S2, No murmurs Abdominal: Normal bowel sounds, Soft, No tenderness, No hepatospenomegaly Extremities: No clubbing, No cyanosis, Other (Decreased pedal pulses bilaterally, hyperpigmented macule changes in albert, right leg has mild nonpitting edema, it is [id number] tender to palpation, no crepitus, sensory is normal, no paralysis, capillary refill less than 2 seconds, no cyanosis) Neuro: Normal speech, Strength at 5/5 X4 ext, Normal tone, Sensation intact, Cranial nerves 3-12 NL Psych/Mental Status: Mental status NL, Mood NL Assessment/Plan Right lower leg pain, due to DVT of right femoral vein, likely provoked Hypertension, uncontrolled Prediabetes arthritis Obesity, morbid hypokalemia mild hyponatremia Plan BP good at 127/67 Continue lisinopril 20mg daily Eliquis 10 mg bid x7 days Then Eliquis 5 mg bid x 6 months Advised healthy diet and lifestyle modification Follow up at the discharge clinic in 7 days follow up with primary care provider for continuity of care Case and discharge plan discussed with Dr. Chavez Condition at Discharge: Good Final Diagnosis/Problems List Right lower leg pain, due to DVT of right femoral vein, likely provoked Hypertension, uncontrolled Prediabetes Arthritis hyponatremia hypokalemia Obesity, morbid Discharge Disposition: Home Discharge Statement: "Patient was advised to return to the ER or call 911 if any headaches, dizziness, shortness of breath, chest pain, abdominal pain, bleeding, fevers, or worsening of medical condition. Patient was counseled about treatment plan, medications, possible side effects, patientverbalized understanding. All questions were answered to the best of my ability. This discharge took greater then 30 minutes in planning, reviewing documentation, counseling the patient, and discussing with other team members." ASSESSMENT ASSESSMENT Assessment Date of Service: Oct 14, 2024 Billing Provider: EULA CHAVEZ MD Common Visit Codes: 63381-XJE/OBS DISCH DAY >30min KATELYN ABURTO RESIDENT Oct 14, 2024 16:44 EULA CHAVEZ MD Oct 15, 2024 09:52
[2024-10-14] MEDS ORDERED: LISI20TA56 PO (16:50)
[2024-10-14] MEDS ORDERED: APIX5TAB PO (16:50)
== END 2024-10-14 18:54 | disposition home or self-care (01) | DRG 300 ==
LOC: ER 11:18 → OVERFLOW 22:08 → WEST WING 22:10 → OVERFLOW 22:10 → WEST WING 10-14 15:54
PROVIDERS: ATTEND Student in an Organized Health Care Education/Training Program
DX: I82.411 Acute embolism and thrombosis of right femoral vein (principal); E87.1 Hypo-osmolality and hyponatremia; Z68.41 Body mass index [BMI] 40.0-44.9, adult; I10 Essential (primary) hypertension; E87.6 Hypokalemia; E66.01 Morbid (severe) obesity due to excess calories; Z20.822 Contact with and (suspected) exposure to COVID-19; R73.03 Prediabetes; M51.369 Other intervertebral disc degeneration, lumbar region without mention of lumbar back pain or lower extremity pain; Z88.6 Allergy status to analgesic agent; Z88.5 Allergy status to narcotic agent; Z88.0 Allergy status to penicillin; Z88.8 Allergy status to other drugs, medicaments and biological substances
CPT/HCPCS: 36415; 71045; 71275; 72100; 80048; 80061; 82550; 83036; 83735; 83880; 84484; 85025; 85610; 87426; 87804; 93925; 93971; 96361; 96372; 96374; 96375; G0378; J2405